=== PATIENT | male | born 1950 | race Caucasian/White ===

== ENCOUNTER → 2017-05-30 | Outpatient (CLI) | payer SELFPAY ==
[~2017-05-30] MED LIST: ATOR20TA65 PO; AZIT-17 PO; CLIN300C99 PO; DILT240C2 PO; DULO20CA3 PO; HYDR-317 PO; LANS30CA63 PO; MELO-205 PO; METH4TAB66 PO; OMEP-125 PO; OXCA150T45 PO; PNEU0.5D3 IM; PRED20TA6 PO; TADA20TA33 PO; TAMS0.4C70 PO; TRAZ-156 PO
--- NOTE | 2017-05-30 18:33 | EKG ---
FACILITY: [facility] PATIENT NAME: ELY VÁZQUEZ : [id number] MR: [id number] V: [id number] EXAM DATE: ORDERING PHYSICIAN: MAE ANDERSON TECHNOLOGIST: JORGE Test Reason : INC HEARTRATE Blood Pressure : / mmHG Vent. Rate : 102 BPM Atrial Rate : 102 BPM P-R Int : 172 ms QRS Dur : 084 ms QT Int : 336 ms P-R-T Axes : 063 076 060 degrees QTc Int : 437 ms Sinus tachycardia Otherwise normal ECG No previous ECGs available Referred By: Confirmed By:
== END ==
LOC: RESP 16:08
PROVIDERS: ATTEND Internal Medicine
DX: Z02.9 Encounter for administrative examinations, unspecified (principal)